=== PATIENT | female | born 1965 | race Caucasian/White ===

== ENCOUNTER → 2016-05-04 | Outpatient (CLI) | payer OTHER ==
[~2016-05-04] MED LIST: BEE1CAP PO; BIOT1CAP8 PO; BUPR-79 PO; HYDR12.55 PO; MELO15TA4 PO; SPIR25TA PO
--- NOTE | 2016-05-04 14:26 | MAMMOGRAPHY REPORT ---
BILATERAL DIGITAL DIAGNOSTIC MAMMOGRAM TOMOSYNTHESIS WITH CAD: 05/04/2016 CLINICAL HISTORY: 6 Month Follow-up Left. TECHNIQUE: Breast tomosynthesis in addition to standard 2D mammography was performed. Current study was also evaluated with a Computer Aided Detection (CAD) system. Bilateral CC and MLO 2-D and leona synthesis images and spot magnification left CC and ML views were obtained. COMPARISON: Comparison is made to exams dated: 11/04/2015 mammogram, 04/01/2015 mammogram, 03/23/2015 m ammogram, 03/17/2014 mammogram, 03/14/2013 mammogram, and 03/06/2012 mammogram - [facility]. BREAST COMPOSITION: The tissue of both breasts is heterogeneously dense, which may obscure small ma sses. FINDINGS: Spot magnification views again demonstrate grouped faint amorphous calcifications in the left 6:00 b reast posteriorly. The calcifications are not significantly changed compared to spot magnification views dating back to the 04/01/2015 exam. Additionally, the calcifications are likely also stable co mpared to the 03/17/2014 full-field views. Given the long-term stability, the calcifications are lik kaylen benign. The remainder of both breasts are stable compared to prior exams, without suspicious masses, calcifi cations, or areas of architectural distortion noted. IMPRESSION: ACR-BI-RADS CATEGORY 3: PROBABLY BENIGN Grouped faint calcifications in the left 6:00 breast are not significantly changed dating back to th e 04/01/2015 exam and are probably benign. Recommend bilateral diagnostic mammograms in 12 months, t o confirm 2 years of stability of the calcifications on spot magnification views and for routine brian mography of the right breast. The patient has been verbally notified of the results. Approximately 10% of breast cancers are not detected with mammography. A negative mammographic repor t should not delay biopsy if a clinically suggestive mass is present. Felecia Levy M.D. ah/:05/04/2016 14:19:25 Automatic Embroidery Machine Tender: Eleanor HERRING(Parish)(M), [facility] letter sent: Follow Up Recommended 3 BI-RADS Code: ACR-BI-RADS Category 3: Probably Benign
== END | disposition home or self-care (01) ==
LOC: C.MAMM 12:37
PROVIDERS: ATTEND Family Medicine
DX: R92.1 Mammographic calcification found on diagnostic imaging of breast (principal)

== ENCOUNTER → 2016-10-19 | Day surgery (SDC) | payer OTHER ==
[2016-10-06 08:00] VITALS: Ht 166.4 cm; Wt 63.6 kg
[~2016-10-19] VITALS: Ht 166.4 cm; Wt 63.6 kg
[~2016-10-19] MED LIST changes: +LIDOCAINE HCL 2% 2 ML VIAL (20MG/ML) ONE; +PROPOFOL IV EMULSION 10 MG/ML 20 ML VIAL IV ONE; +SODIUM CHLORIDE 0.9% 500ML 500 ML IV ONE
[2016-10-19 13:14] VITALS: TEMP 36.3
--- NOTE | 2016-10-19 14:10 | Endo History and Physical ---
History & Physical Date of Service: Oct 19, 2016. Chief Complaint: screening Referring Physician: Dr. Ana Maria Whitmore History of Present Illness 51 yo CF who presents for screening colonoscopy. Past Surgical History Hx Cardiac Surgery: No Hx Internal Defibrillator: No Hx Pacemaker: No Hx Abdominal Surgery: Yes () Hx of Implantable Prosthesis: No Hx Post-Op Nausea and Vomiting: No Hx Cancer Surgery: No Hx Thoracic Surgery: No Hx Orthopedic: No Hx Urinary Tract Surgery: No Family History None Social History Smoking Status: Never Smoker Hx Substance Use: No Hx Alcohol Use: Yes (OCCASIONALLY) Allergies Coded Allergies: No Known Allergies (Verified , 10/06/16) Current Medications Reported Home Medications Medications Dose Route/Sig Max Daily Dose Days Date Category Biotin 1 Mg Cap 1 Cap PO QAM 10/06/16 Reported Bee Pollen 550 Mg Cap 1 Cap PO QAM 10/06/16 Reported Aldactone (Spironolactone) 25 Mg Tab 25 Mg PO QAM 10/06/16 Reported Mobic (Meloxicam) 15 Mg Tab 15 Mg PO DAILY PRN 10/06/16 Reported Hydrochlorothiazide 12.5 Mg Tab 1 Tab PO DAILY PRN 90 10/06/16 Reported Wellbutrin Sr (Bupropion HCl) 150 Mg Ertab 150 Mg PO QAM 10/06/16 Reported Vital Signs Weight (Kilograms): 63.64 Height (Feet): 5 Height (Inches): 5.5 Date Time Temp Pulse Resp B/P (MAP) Pulse Ox O2 Delivery O2 Flow Rate FiO2 10/19/16 13:14 36.3 85 16 130/77 (94) 96 Room Air Physical Exam General Appearance: WD/WN, no apparent distress Respiratory/Chest: Auscultation: breath sounds normal Cardiovascular: Heart Auscultation: RRR Abdomen: Bowel Sounds: normal Inspection & Palpation: soft, non-distended, no tenderness, guarding & rebound Assessment and Plan Assessment: 51 yo CF who presents for screening colonoscopy. Plan: Proceed with colonoscopy.
--- NOTE | 2016-10-19 14:43 | GI REPORT ---
Procedure Date: 10/19/2016 2:06 PM Procedure: Colonoscopy Indications: Screening for colorectal malignant neoplasm Medicines: Monitored Anesthesia Care Complications: No immediate complications. Estimated Blood Loss: Estimated blood loss: none. Procedure: Pre-Anesthesia Assessment: - Prior to the procedure, a History and Physical was performed, and patient medications and allergies were reviewed. The patient's tolerance of previous anesthesia was also reviewed. The risks and benefits of the procedure and the sedation options and risks were discussed with the patient. All questions were answered, and informed consent was obtained. Prior Anticoagulants: The patient has taken no previous anticoagulant or antiplatelet agents. ASA Grade Assessment: I - A normal, healthy patient. After reviewing the risks and benefits, the patient was deemed in satisfactory condition to undergo the procedure. After I obtained informed consent, the scope was passed under direct vision. Throughout the procedure, the patient's blood pressure, pulse, and oxygen saturations were monitored continuously. The scope was introduced through the anus and advanced to the terminal ileum. The colonoscopy was performed without difficulty. The patient tolerated the procedure well. The quality of the bowel preparation was good. The terminal ileum, ileocecal valve, appendiceal orifice, and rectum were photographed. Findings: A 5 mm polyp was found in the transverse colon. The polyp was sessile. The polyp was removed with a hot snare. Resection and retrieval were complete. Non-bleeding internal hemorrhoids were found during retroflexion. The hemorrhoids were small. Impression: - One 5 mm polyp in the transverse colon, removed with a hot snare. Resected and retrieved. - Non-bleeding internal hemorrhoids. Recommendation: - Resume previous diet. - Continue present medications. - Repeat colonoscopy for surveillance based on pathology results. - Return to primary care physician as previously scheduled. Jean Fatima DO 10/19/2016 2:43:40 PM This report has been signed electronically. Note Initiated On: 10/19/2016 2:06 PM I attest to the content of the Intraoperative Record and orders documented therein, exceptions below
--- NOTE | 2016-10-19 14:46 | Discharge Instructions ---
Endoscopy Patient Instructions Date / Procedure(s) Performed Oct 19, 2016. Colonoscopy Allergy Information Coded Allergies: No Known Allergies (Verified , 10/06/16) Discharge Date / Findings Oct 19, 2016. Colon polyp Internal hemorrhoids Medication Instructions Stopped Medication(s): last dose Aldactone Monday OK to resume all medications today as prescribed Reported Home Medications Medications Dose Route/Sig Max Daily Dose Days Date Category Biotin 1 Mg Cap 1 Cap PO QAM 10/06/16 Reported Bee Pollen 550 Mg Cap 1 Cap PO QAM 10/06/16 Reported Aldactone (Spironolactone) 25 Mg Tab 25 Mg PO QAM 10/06/16 Reported Mobic (Meloxicam) 15 Mg Tab 15 Mg PO DAILY PRN 10/06/16 Reported Hydrochlorothiazide 12.5 Mg Tab 1 Tab PO DAILY PRN 90 10/06/16 Reported Wellbutrin Sr (Bupropion HCl) 150 Mg Ertab 150 Mg PO QAM 10/06/16 Reported Provider Instructions Activity Restrictions - No exercising or heavy lifting for 24 hours. - Do not drink alcohol the day of the procedure. - Do not drive a car or operate machinery until the day after the procedure. - Do not make any important decisions or sign important papers in 24 hours after the procedure. Following Day: - Return to full activity which may include returning to work/school. Diet Start your diet with liquids and light foods (jello, soup, juice, toast). Then eat your usual diet if not nauseated. Treatment For Common After Affects For mild abdominal pain, bloating, or excessive gas: - Rest - Eat lightly - Lie on right side Follow-Up Information Follow-up with Dr. Ana Maria Whitmore as scheduled Anesthesia Information What You Should Know You have had a procedure that required some medicine to reduce anxiety and discomfort. This treatment is called moderate sedation. After receiving the treatment, you may be sleepy, but you will be able to breathe on your own. The effects of the treatment may last for several hours. Follow these instructions along with Activity/Diet recommendations noted above: * Do NOT do anything where dizziness or clumsiness would be dangerous. * Rest quietly at home today, then you can be up and about tomorrow. * Have a responsible person stay with you the rest of today. * You may have had an I.V. today. If so, you may take the dressing off later today. Recommendations Call your doctor if: * Trouble breathing * Continuous vomiting for more than 24 hours * Temperature above 101 degrees * Severe abdominal pain or bloating * Pain not relieved by pain medicine ordered * There is increased drainage or redness from any incision * A large amount of rectal bleeding greater than 2-3 tablespoons. (If you had a polyp/s removed or have hemorrhoids, a small amount of blood - from the rectum is to be expected.) * You have any unanswered questions or concerns. IN THE EVENT OF A SERIOUS EMERGENCY, GO TO THE NEAREST EMERGENCY ROOM Your discharge instructions were prepared by provider Jean Fatima. Patient Instructions Signature Page Janel Jensen Patient (or Guardian) Signature/Date: I have read and understand the instructions given to me by my caregivers. Caregiver/RN/Doctor Signature/Date: The above-named patient and/or guardian has received patient instructions on this date. + Original Patient Signature Page (only) stays with chart. Please make copy for patient.
--- NOTE | 2016-10-19 15:04 | Anesthesiology Progress Note ---
Anesthesia Post Op Note Date & Time Oct 19, 2016 at 15:04 Vital Signs Pain Intensity: 0 Vital Signs Past 12 Hours Date Time Temp Pulse Resp B/P (MAP) Pulse Ox O2 Delivery O2 Flow Rate FiO2 10/19/16 14:53 77 18 116/80 (92) 97 Room Air 10/19/16 14:38 76 18 120/72 (88) 98 Room Air 10/19/16 13:14 36.3 85 16 130/77 (94) 96 Room Air Notes Mental Status: alert / awake / arousable, participated in evaluation Pt Amnestic to Procedure: Yes Nausea / Vomiting: adequately controlled Pain: adequately controlled Airway Patency, RR, SpO2: stable & adequate BP & HR: stable & adequate Hydration State: stable & adequate Anesthetic Complications: no major complications apparent
[2016-10-19 15:08] VITALS: BP 126/86; PULSE 74; O2SAT 97
== END | disposition home or self-care (01) ==
LOC: C.GI 12:50
PROVIDERS: ATTEND Internal Medicine
DX: Z12.11 Encounter for screening for malignant neoplasm of colon (principal); D12.3 Benign neoplasm of transverse colon; K64.8 Other hemorrhoids

== ENCOUNTER → 2017-01-17 | Outpatient (CLI) | payer OTHER ==
[~2017-01-17] MED LIST changes: -LIDOCAINE HCL 2% 2 ML VIAL (20MG/ML) ONE; -PROPOFOL IV EMULSION 10 MG/ML 20 ML VIAL IV ONE; -SODIUM CHLORIDE 0.9% 500ML 500 ML IV ONE
== END | disposition home or self-care (01) ==
LOC: C.PAPS 14:07
PROVIDERS: ATTEND Obstetrics & Gynecology
DX: Z12.4 Encounter for screening for malignant neoplasm of cervix (principal); R87.610 Atypical squamous cells of undetermined significance on cytologic smear of cervix (ASC-US)

== ENCOUNTER → 2017-05-10 | Outpatient (CLI) | payer OTHER ==
[~2017-05-10] MED LIST changes: +MELO-84 PO; -MELO15TA4 PO
--- NOTE | 2017-05-10 14:14 | MAMMOGRAPHY REPORT ---
BILATERAL DIGITAL DIAGNOSTIC MAMMOGRAM TOMOSYNTHESIS WITH CAD: 05/10/2017 CLINICAL HISTORY: Interval follow-up of left breast calcifications. Due for annual mammography of th e right breast. The patient reports no current complaints. TECHNIQUE: Breast tomosynthesis in addition to standard 2D mammography was performed. Current study was also evaluated with a Computer Aided Detection (CAD) system. Bilateral CC and MLO 2D and tomosyn thesis images and spot magnification left CC and ML views were obtained. COMPARISON: Comparison is made to exams dated: 05/04/2016 mammogram, 11/04/2015 mammogram, 04/01/2015 m ammogram, 03/23/2015 mammogram, 03/17/2014 mammogram, and 03/14/2013 mammogram - [facility]. BREAST COMPOSITION: The tissue of both breasts is heterogeneously dense, which may obscure small mas ses. FINDINGS: Spot magnification views again demonstrate grouped faint amorphous calcifications in the l eft 6:00 breast posteriorly measuring approximately 5 mm. The calcifications are not significantly c hanged compared to spot magnification views dating back to the 04/01/2015 exam. Additionally, the cynthia cifications are likely also stable compared to the 03/17/2014 on full-field views. Given the long-ter m stability, the calcifications are considered benign. The remainder of both breasts are stable compared to prior exams, without suspicious masses, calcific ations, or areas of architectural distortion noted. Other scattered benign-appearing left breast cynthia cifications are stable. IMPRESSION: ACR BI-RADS CATEGORY 2: BENIGN Grouped faint calcifications in the left 6:00 breast are stable dating back to at least the March 2015 exam and are considered benign given long-term stability. There is no mammographic evidence of malignancy in either breast. A 1 year screening mammogram is recommended. The patient has been verbally notified of the results. Approximately 10% of breast cancers are not detected with mammography. A negative mammographic report should not delay biopsy if a clinically suggestive mass is present. Felecia Levy M.D. /:05/10/2017 13:10:01 Senior Receptionist: Eleanor Arteaga, [facility] letter sent: Normal /2 BI-RADS Code: ACR BI-RADS Category 2: Benign
== END | disposition home or self-care (01) ==
LOC: C.MAMM 12:39
PROVIDERS: ATTEND Obstetrics & Gynecology
DX: R92.1 Mammographic calcification found on diagnostic imaging of breast (principal)

== ENCOUNTER → 2017-09-25 | Outpatient (CLI) | payer OTHER ==
[2017-09-25 12:38] LABS: BASO % 0.5 %; BASO ABS # 0.04 K/uL (0-0.2); EOS % 3.7 %; EOS ABS # 0.31 K/uL (0-0.5); HEMATOCRIT 47.2 % (37-47); HEMOGLOBIN 15.7 g/dL (12.0-16.0); IG# 0.01 K/uL (0.00-0.02); LYMPH % 26.1 %; LYMPH ABS # 2.17 K/uL (1.2-3.4); MEAN CELL VOLUME 92.2 fL (80-100); MEAN CORPUSCULAR HEMOGLOBIN 30.7 pg (25-34); MEAN CORPUSCULAR HGB CONC 33.3 g/dl (32-36); MEAN PLATELET VOLUME 11.3 fL (7.4-10.4); MONO % 6.5 %; MONO ABS # 0.54 K/uL (0.11-0.59); NEUT % 63.1 %; NEUT ABS # 5.23 K/uL (1.4-6.5); PLATELET COUNT 281 K/uL (130-400); RED CELL DISTRIBUTION WIDTH SD 43.6 fL (36.4-46.3)
[2017-09-25 13:02] LABS: ALBUMIN 3.8 gm/dl (3.4-5.0); ALKALINE PHOSPHATASE 70 U/L (45-117); ALT/SGPT 28 U/L (12-78); AST/SGOT 22 U/L (15-37); BLOOD UREA NITROGEN 11 mg/dl (7-18); CALCIUM 8.8 mg/dl (8.5-10.1); CARBON DIOXIDE 27 mmol/L (21-32); CHOLESTEROL 191 mg/dl (0-200); GLUCOSE 84 mg/dl (70-99); LDL CHOLESTEROL CALCULATED 93 mg/dl; POTASSIUM 3.6 mmol/L (3.5-5.1); SODIUM 139 mmol/L (136-145); TOTAL PROTEIN 7.5 gm/dl (6.4-8.2)
== END | disposition home or self-care (01) ==
LOC: C.LAB1850 10:11
PROVIDERS: ATTEND Internal Medicine
DX: R53.83 Other fatigue (principal); Z13.220 Encounter for screening for lipoid disorders